=== PATIENT | female | born 1935 | race Caucasian/White ===

== ENCOUNTER 2018-06-03 08:42 | Day surgery (SDC) | payer OTHER, MEDICARE ==
[~2018-06-03 08:42] MED LIST: CEFAZOLIN/SWI 1gm 1 GM/10 ML SYR ONE
[2018-06-03] MEDS ORDERED: NS 0.9% VIAL 10 ML ONE (08:57)
[2018-06-03] MEDS ORDERED: EPINEPHRINE/PF 1 MG/ML AMP ONE (08:57)
[2018-06-03] MEDS ORDERED: BALANCED SALT IRRIG PLAIN 500 ML BTL IRR ONE (08:58)
[2018-06-03] MEDS ORDERED: LIDOCAINE 1% MPF 2 ML AMPULE ONE (08:59)
[2018-06-03] MEDS ORDERED: MOXIFLOXACIN HCL 10 DROPS/ML **OR USE OPTH ONE (08:59)
[2018-06-03] MEDS ORDERED: PHENYLEPHRINE 10% OPTH 5ML ONE (09:14)
[2018-06-03] MEDS ORDERED: BUPIVACAINE 0.25% PF 10 ML VIAL ONE (09:14)
[2018-06-03] MEDS ORDERED: NA CHLORIDE 0.9% 500 ML ONE (09:14)
[2018-06-03] MEDS ORDERED: CYCLOPENTOLATE 1% OPTH 2 ML ONE (09:14)
[2018-06-03] MEDS ORDERED: LIDOCAINE 2% MPF 5 ML VIAL ONE (09:14)
[2018-06-03] MEDS ORDERED: TETRACAINE HCL 0.5% 2ML OPTH ONE (09:14)
[2018-06-03] MEDS ORDERED: CYCLOPENTOLATE 1% OPTH 2 ML OPTH ONE ×2 (09:42→09:47)
[2018-06-03] MEDS ORDERED: PHENYLEPHRINE 10% OPTH 5ML OPTH ONE ×2 (09:42→09:47)
[2018-06-03] MEDS ORDERED: LIDOCAINE HCL/PF 3.5% OPTH GEL ONE (09:43)
[2018-06-03] MEDS ORDERED: MIDAZOLAM HCL 2 MG/2 ML INJ ONE (10:11)
[2018-06-03] MEDS ORDERED: FENTANYL CITR 100 MCG/2 ML ONE (10:11)
[2018-06-03] MEDS: DUOVISC 1 KIT OPTH ONE ×2 (10:49→10:54)
--- NOTE | 2018-06-03 11:15 | P.BOP ---
Preoperative diagnosis: Nuclear sclerotic and cortical cataract OS Postoperative diagnosis: Same Primary procedure: Phacoemulsification with IOL OS Estimated blood loss: None Anesthesia: Local (Topical with anesthesia for cataract surgery) Complications: None Implants: ZCB00 +20.0 Transferred to: Other (Day surgery) Condition: Good
--- NOTE | 2018-06-03 22:37 | OP ---
Surgeon: Sara Larios MD Anesthesiologist: 1. Cooper Bryant CRNA. 2. Oli Rocha M.D. Preoperative Diagnoses: Nuclear sclerotic cataract and cortical cataract, left eye. Operation Performed: Phacoemulsification with intraocular lens implant, left eye. Anesthesia: Per cataract surgery. Complications: None. Description Of Procedure: In the operating room the patient was prepped and draped in the usual ster ile fashion for ophthalmic surgery. A lid speculum was placed in the left eye. Two paracentesis sit es were made superiorly and inferiorly in the limbal cornea. Viscoat was placed in the anterior alyce klaudia and a crescent blade was used to make a corneal groove and tunnel, and a keratome was used to ent er the anterior chamber. Provisc was placed in the anterior chamber and a 360 degree capsulotomy was performed with a cystitome. The lens was hydrodissected with BSS and rotated freely. The lens was removed with a stop and chop technique. 7.80 CDE was used to remove the lens. Residual cortex was r emoved with the irrigation and aspiration. Provisc was placed in the capsular bag. A ZCB00 +20.0 di opter lens was placed in the capsular bag without complications. Irrigation and aspiration was used to remove residual viscoelastic. The paracentesis sites were hydrated with BSS. The wound and parac entesis sites were inspected and found to be watertight. Vigamox 0.07 cc was placed intracamerally a t the end of the procedure. The eye was irrigated with balanced salt solution. The eye was patched with a soft cotton patch and Cody metal shield. The patient was returned to day surgery in good condition. Comments: Akten was placed in the eye in Day Surgery and irrigated out of the eye with BSS in the OR . Preservative free 1% lidocaine was placed in the anterior chamber prior to Viscoat. Discharge Instructions: Ms. Jamison is discharged to home in good condition and is to follow up with Britt Larios at the morning. GURVINDER/TRACEE Voice ID: [id number] Report ID: [id number]
== END 2018-06-03 12:15 | disposition home or self-care (01) ==
LOC: OR 08:42
PROVIDERS: ATTEND Ophthalmology Retina Specialist
PROC: 08RK3JZ Replacement of Left Lens with Synthetic Substitute, Percutaneous Approach (ICD-10-PCS; principal; 2018-06-03 10:00)
DX: H25.12 Age-related nuclear cataract, left eye (principal); H25.012 Cortical age-related cataract, left eye; I48.91 Unspecified atrial fibrillation; I10 Essential (primary) hypertension; Z85.820 Personal history of malignant melanoma of skin; Z88.6 Allergy status to analgesic agent; Z82.49 Family history of ischemic heart disease and other diseases of the circulatory system; Z80.3 Family history of malignant neoplasm of breast; Z80.8 Family history of malignant neoplasm of other organs or systems; Z82.3 Family history of stroke
CPT/HCPCS: 36415 ×2; 66984; 84132; 85610; J0171; J0690; J2001; J2250; J3010

== ENCOUNTER 2018-07-08 07:05 | Day surgery (SDC) | payer OTHER, MEDICARE ==
[2018-07-08 07:47] LABS: Protime INR 1.03
[2018-07-08] MEDS ORDERED: BALANCED SALT IRRIG PLAIN 500 ML BTL IRR ONE (08:04)
[2018-07-08] MEDS ORDERED: EPINEPHRINE/PF 1 MG/ML AMP ONE (08:04)
[2018-07-08] MEDS ORDERED: NS 0.9% VIAL 10 ML ONE (08:04)
[2018-07-08] MEDS ORDERED: TRYPAN BLUE 0.5 ML SYR OPTH ONE (08:05)
[2018-07-08] MEDS ORDERED: DUOVISC 1 KIT OPTH ONE (08:05)
[2018-07-08] MEDS ORDERED: NA CHLORIDE 0.9% 500 ML ONE (08:17)
[2018-07-08] MEDS ORDERED: TETRACAINE HCL 0.5% 2ML OPTH ONE (08:17)
[2018-07-08] MEDS ORDERED: BUPIVACAINE 0.25% PF 10 ML VIAL ONE (08:17)
[2018-07-08] MEDS ORDERED: LIDOCAINE 2% INJ, MPF 2 ML 1 ML ONE (08:18)
[2018-07-08] MEDS ORDERED: LIDOCAINE HCL/PF 3.5% OPTH GEL ONE (08:19)
[2018-07-08] MEDS ORDERED: LIDOCAINE 1% MPF 2 ML AMPULE ONE (08:20)
[2018-07-08] MEDS ORDERED: KETOROLAC OPTHALMIC 5 ML BOT ONE (08:27)
[2018-07-08] MEDS: CYCLOPENTOLATE 1% OPTH 2 ML ONE ×3 (08:30→08:40)
[2018-07-08] MEDS: PHENYLEPHRINE 10% OPTH 5ML ONE ×3 (08:30→08:40)
[2018-07-08] MEDS ORDERED: MIDAZOLAM HCL 2 MG/2 ML INJ ONE (08:37)
[2018-07-08] MEDS ORDERED: FENTANYL CITR 100 MCG/2 ML ONE (08:37)
[2018-07-08] MEDS ORDERED: MOXIFLOXACIN HCL 10 DROPS/ML **OR USE OPTH ONE (09:01)
[2018-07-08] MEDS ORDERED: BSS OPTHALMIC SOL 15 ML BOT OPTH ONE (09:02)
--- NOTE | 2018-07-08 09:37 | P.BOP ---
Preoperative diagnosis: Nuclear sclerotic, cortical and posterior subcapsular cataract OD Postoperative diagnosis: Same Primary procedure: Phacoemulsification with IOL OD Estimated blood loss: None Anesthesia: Local (Topical with anesthesia for cataract surgery) Complications: None Implants: ZCB00 +20.0 Transferred to: Other (Day surgery) Condition: Good
--- NOTE | 2018-07-08 21:04 | OP ---
Date of Procedure: 07/08/2018 Surgeon: Sara Larios MD Anesthesiologist: 1. Kay Guevara CRNA. 2. Nagi Felix M.D. Preoperative Diagnosis: Nuclear sclerotic, cortical, and posterior subcapsular cataract, right eye. Operation Performed: Phacoemulsification with intraocular lens implant, right eye. Anesthesia: Per cataract surgery. Complications: None. Description Of Procedure: In the operating room the patient was prepped and draped in the usual sterile fashion for ophthalmic surgery. A lid speculum was placed in the right eye. Two paracentesis sites were made superiorly an d inferiorly in the limbal cornea. Viscoat was placed in the anterior chamber and a crescent blade w as used to make a corneal groove and tunnel, and a keratome was used to enter the anterior chamber. Provisc was placed in the anterior chamber and a 360 degree capsulotomy was performed with a cystitom e. The lens was hydrodissected with BSS and rotated freely. The lens was removed with a stop and ch op technique. A 6.31 phaco CDE was used to remove the lens. Residual cortex was removed with the ir rigation and aspiration. Provisc was placed in the capsular bag. A ZCB00 +20.0 diopter lens was jun justus in the capsular bag without complications. Irrigation and aspiration were used to remove residua l viscoelastic. The paracentesis sites were hydrated with BSS. The wound and paracentesis sites wer e inspected and found to be watertight. Vigamox 0.07 cc was placed intracamerally at the end of the procedure. The eye was irrigated with balanced salt solution. The eye was patched with a soft steven n patch and Cody metal shield. The patient was returned to day surgery in good condition. Comments: Akten was placed in the eye in Day surgery and irrigated out of the eye with BSS in the OR . Preservative free 1% lidocaine was placed in the anterior chamber prior to Viscoat. Discharge Instructions: Ms. Jamison was discharged to home in good condition and is to follow up with Dr. Larios in the morning. GURVINDER/MODL Voice ID: [id number] Report ID: [id number]
== END 2018-07-08 10:00 | disposition home or self-care (01) ==
LOC: OR 07:05
PROVIDERS: ATTEND Ophthalmology Retina Specialist
PROC: 08RJ3JZ Replacement of Right Lens with Synthetic Substitute, Percutaneous Approach (ICD-10-PCS; principal; 2018-07-08 09:00)
DX: H25.11 Age-related nuclear cataract, right eye (principal); H25.011 Cortical age-related cataract, right eye; H25.041 Posterior subcapsular polar age-related cataract, right eye; Z88.5 Allergy status to narcotic agent; Z88.8 Allergy status to other drugs, medicaments and biological substances; I10 Essential (primary) hypertension; I48.91 Unspecified atrial fibrillation; Z85.820 Personal history of malignant melanoma of skin; Z79.01 Long term (current) use of anticoagulants
CPT/HCPCS: 36415 ×2; 66984; 84132; 85610; 85730; J0171; J2001; J2250; J3490; J3010